=== PATIENT | female | born 1950 | race Caucasian/White ===

== ENCOUNTER → 2017-02-03 | Outpatient (CLI) | payer BC ==
--- NOTE | 2017-02-04 15:27 | MRI ---
EXAM DESCRIPTION: Lumbar Spine w/o Contrast CLINICAL HISTORY: LOW BACK PAIN COMPARISON: None. TECHNIQUE: Multiplanar, multisequence MRI of the lumbar spine was performed without contrast. FINDINGS: GENERAL Lumbar vertebral bodies show normal height without compression deformity. There is 4 to 5 mm retrolisthesis of L2 on L3. Anterior disc bulging and marginal endplate osteophytes are seen at every level the lower thoracic to lumbar spine. Mild levocurvature of the mid lumbar spine is seen. Conus medullaris terminates at T12-L1 and is unremarkable. Visualized intra-abdominal retroperitoneal structures show fluid signal bilateral renal cortical cysts. T11-12: Disc desiccation and mild disc space narrowing with 4 mm broad-based disc bulge contributes to mild spinal canal stenosis. T12-L1: Disc desiccation and mild loss of disc space height with 3 mm broad-based disc bulge. No significant spinal canal stenosis or foraminal encroachment. Patchy Modic type I and II degenerative endplate signal changes are seen anteriorly.. L1-2 Disc desiccation and moderate loss of disc space height is seen. Trace retrolisthesis of L1 on L2 with mild broad-based disc bulge. No significant spinal canal stenosis or foraminal encroachment. L2-3 Disc desiccation and [id number] disc space narrowing. Mild bilateral facet hypertrophic and degenerative changes are seen. There is more focal disc protrusion in the right lateral recess extending posterior to the superior plate of L3 measuring 8 mm AP from the superior plate of L3 and 13 mm craniocaudal by at least 13 mm transverse. This encroaches on the descending right L3 nerve root. Moderate right and mild left foraminal encroachment is seen. L3-4 Disc desiccation and moderate to severe disc space narrowing. Modic type II degenerative endplate signal changes are seen posteriorly. Trace retrolisthesis of L3 on L4 is noted with mild bilateral facet hypertrophic and degenerative changes. No significant spinal canal stenosis. There is severe right and moderate left foraminal encroachment with loss of normal fat signal from around the exiting right L3 nerve root. There appear to be metallic susceptibility artifact posteriorly at this level with possible previous ligamentum flavum resection indicating prior surgery. Correlate with patient history. L4-5 Disc desiccation and mild posterior disc space narrowing. There is moderate bilateral facet hypertrophic and degenerative change with mild ligament flavum thickening. Mild right greater than left lateral recess encroachment is seen with mild bilateral foraminal encroachment. L5-S1 Desiccation of the disc space and moderate disc space narrowing is seen with 4 mm broad-based disc bulge eccentric towards the left. Mild bilateral facet hypertrophic and degenerative changes are seen with ligamentum flavum thickening. There is mild left lateral recess encroachment. Severe left and moderate right foraminal encroachment is seen with loss of normal fat signal from around the displaced exiting left L5 nerve root. IMPRESSION: Multilevel moderate to severe disc degenerative changes and [id number] facet arthropathy of the lumbar spine is seen. There is multilevel foraminal encroachment throughout the lumbar spine most significant on the right at L3-4 and on the left at L5-S1. More focal disc protrusion in the right lateral recess at L2-3 encroaches on the descending right L3 nerve root. Probable prior postsurgical changes at the L3-4 level. Electronically signed by: Brent Wells MD 02/04/2017 3:26 PM CDT
== END | disposition home or self-care (01) ==
LOC: MRI 09:06
PROVIDERS: ATTEND Family Medicine
DX: M51.36 Other intervertebral disc degeneration, lumbar region (principal)

== ENCOUNTER → 2017-08-28 | Outpatient (CLI) | payer BC ==
--- NOTE | 2017-08-30 15:54 | MAM ---
EXAM DESCRIPTION: 3D Screening BILATERAL : Digital Mammography. CLINICAL HISTORY: 67 years Female SCREENING . No complaints. No family history of breast cancer. Postmenopausal. Currently on HRT. COMPARISON: 2-D digital screening bilateral studies on 05/26/2016 and 05/02/2012. Report from prior examination also reviewed. TECHNIQUE: Bilateral CC and MLO projection full-field images, 3-D tomosynthesis digital mammographic technique. Also bilateral synthesized CC/ MLO full-field images. CAD not utilized. FINDINGS: The breast parenchymal density pattern is: Scattered areas of fibroglandular density. No skin thickening or nipple retraction bilateral solitary microcalcifications, more numerous on the right. No focal, stellate mass or density, focal asymmetry , and no suspicious microcalcifications bilaterally. Stable mammograms compared to prior study, taking into account differences in mammographic technique IMPRESSION: BI-RADS CATEGORY: 2 - BENIGN FINDINGS. FOLLOW UP: Routine digital bilateral screening, one year interval from August 2017 Written communication explaining the IMPRESSION and follow-up, will be mailed to the patient and referring health care provider. According to the [employer], yearly mammograms are recommended starting at age 40 and continuing as long as a woman is in good health. Any breast change noted on a breast self-exam should be reported promptly to the patient's healthcare provider. Breast MRI is recommended for women with an approximately 20-25% or greater lifetime risk of breast cancer, including women with a strong family history of breast or ovarian cancer and women who have been treated for Hodgkin's disease. A negative mammographic report should not delay tissue diagnosis in patients with significant clinical history or physical findings. Extremely dense breast tissue limits the sensitivity of digital mammography. Electronically signed by: Kb Solis MD 08/30/2017 3:53 PM [facility]
== END ==
LOC: MAMMO 09:00
PROVIDERS: ATTEND Family Medicine
DX: Z12.31 Encounter for screening mammogram for malignant neoplasm of breast (principal)

== ENCOUNTER → 2018-02-12 | Outpatient (CLI) | payer BC | LOC: GMAL 10:38 | PROVIDERS: ATTEND Family Medicine | DX: Z00.01 Encounter for general adult medical examination with abnormal findings (principal) ==

== ENCOUNTER → 2018-10-05 | Outpatient (CLI) | payer BC ==
--- NOTE | 2018-10-06 11:13 | MRI ---
EXAM DESCRIPTION: Lumbar Spine w/wo Contrast CLINICAL HISTORY: 68 years Female, RADICULOPATHY COMPARISON: MRI of the lumbar spine dated 02/03/2017. TECHNIQUE: Multiplanar multiecho imaging of the lumbar spine was performed before and after intravenous contrast administration. FINDINGS: Straightening of the normal lordotic curvature of the lumbar spine is noted. There is grade 1 retrolisthesis of L2 over L3. The vertebral body heights are well-maintained with no acute compression deformity. Multilevel intervertebral disc space narrowing is noted. The conus medullaris terminates at T12-L1 intervertebral disc space. The visualized spinal cord demonstrates no signal abnormality. L1-L2: Posterior disc bulge and facet arthropathy with no canal stenosis. There is mild bilateral neural foraminal narrowing. L2-L3: Posterior disc osteophyte complex and facet arthropathy with no central canal stenosis. There is moderate to severe right and moderate left neural foraminal narrowing. L3-L4: Posterior disc osteophyte complex and facet arthropathy with no central canal stenosis. There is severe bilateral neural foraminal narrowing. L4-L5: Posterior disc osteophyte complex, ligamentum flavum hypertrophy and facet arthropathy with resultant mild to moderate central canal stenosis, mild right and [id number] left neural foraminal narrowing. L5-S1: Posterior disc bulge and facet arthropathy with no central canal stenosis. There is moderate to severe right and severe left neural foraminal narrowing. The visualized prevertebral and paravertebral soft tissues appear unremarkable. IMPRESSION: Multilevel degenerative disc disease and facet arthropathy throughout the lumbar spine with variable degrees of neural foraminal narrowing as detailed above. Electronically signed by: Shelton Woodson MD 10/06/2018 11:10 AM CDT
== END ==
LOC: MRI 08:18
PROVIDERS: ATTEND Family Medicine
DX: M51.16 Intervertebral disc disorders with radiculopathy, lumbar region (principal)

== ENCOUNTER → 2020-02-24 | Outpatient (CLI) | payer BC, MEDICARE | LOC: GMAL 12:03 | PROVIDERS: ATTEND Family Medicine | DX: D51.3 Other dietary vitamin B12 deficiency anemia (principal); R53.83 Other fatigue; E55.9 Vitamin D deficiency, unspecified; E11.9 Type 2 diabetes mellitus without complications; Z79.899 Other long term (current) drug therapy; E78.49 Other hyperlipidemia ==